=== PATIENT | female | born 1945 | race Caucasian/White ===

== ENCOUNTER → 2022-04-28 08:31 | Outpatient (BNVA) | payer MEDICARE, SELFPAY | PROVIDERS: PCP Internal Medicine Geriatric Medicine; Visit Provider Internal Medicine | DX: M54.17 Radiculopathy, lumbosacral region (principal); Z96.82 Presence of neurostimulator | CPT/HCPCS: 99212 ==

== ENCOUNTER 2022-07-01 13:44 | Outpatient (REF) | payer MEDICARE, SELFPAY ==
--- NOTE | ~2022-07-01 | MR_ITS ---
MR LUMBAR SPINE WITHOUT AND WITH CONTRAST CLINICAL INFORMATION: Arthrodesis status. COMPARISON: None available. TECHNIQUE: MRI of the lumbar spine was obtained using routine sequences with and without contrast. Intravenous contrast: Gadavist7 mL FINDINGS: There are 5 nonrib-bearing lumbar-type vertebral bodies. There is grade 1 degenerative anterolisthesis of L3 on L4. Lumbar alignment is otherwise maintained. There is no bone marrow edema. There are no acute fractures. Chronic upper endplate compression deformity at T11. Lumbar vertebral body heights are maintained. There is disc desiccation at all lumbar levels. Mild disc volume loss at L3-L4. Remaining disc volumes are preserved. There are no suspicious enhancing intraosseous lesions. There is no pathologic enhancement along the cauda equina nerve roots. Conus terminates at the L1-L2 level. Partially imaged artifact from a spinal stimulator device. 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 The right kidney is not visualized. Paraspinal muscular atrophy within the lower lumbar spine. L1-L2: Diffuse annular disc bulge with a superimposed shallow left paracentral disc protrusion that results in posterior deflection of the traversing left L2 nerve root within the left subarticular zone. No central canal stenosis. Disc osteophyte and facet arthropathy result in mild bilateral foraminal encroachment. L2-L3: Diffuse annular disc bulge and bilateral facet arthropathy and ligamentum flavum thickening. Central canal remains patent. There is mild bilateral foraminal encroachment. L3-L4: Slight grade 1 anterolisthesis. Severe bilateral facet arthropathy and ligamentum flavum thickening. Uncovered disc with a superimposed diffuse annular disc bulge. Findings in concert result in right subarticular zone stenosis with mass effect on the traversing right L4 nerve root within the right subarticular zone. Mild bilateral foraminal encroachment. L4-L5: Diffuse annular disc bulge and severe bilateral facet arthropathy and ligamentum flavum thickening. No central canal stenosis. Mild bilateral foraminal encroachment without exiting nerve root compression. L5-S1: Diffuse annular disc bulges in part disc osteophyte and moderate bilateral facet arthropathy. No central canal stenosis. Mild foraminal encroachment bilaterally. MR/MR lumbar spine wo/w con IMPRESSION: * At L1-L2, a shallow left paracentral disc protrusion results in posterior deflection of the traversing left L2 nerve root within the left subarticular zone. * At L3-L4, there is grade 1 degenerative anterolisthesis in the setting of advanced bilateral facet arthropathy that along with additional multifactorial degenerative changes result in right subarticular zone stenosis with mass effect on the traversing right L4 nerve root. * Additional degenerative findings as discussed above. Advanced bilateral facet arthropathy at the L2-L3, L3-L4, and L4-L5 levels.Chronic upper endplate compression deformity at T11. No acute fractures. * Partially imaged artifact from a spinal stimulator device. 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 * Paraspinal muscular atrophy within the lower lumbar spine.
== END 2022-07-01 13:45 | disposition home or self-care (01) ==
LOC: HO.MRI 13:44
PROVIDERS: PCP Internal Medicine; Visit Provider Nurse Practitioner Family
DX: M54.17 Radiculopathy, lumbosacral region (principal); Z98.1 Arthrodesis status; Z96.82 Presence of neurostimulator
CPT/HCPCS: 72158; A9585

== ENCOUNTER → 2022-07-07 11:19 | Outpatient (BNVA) | payer MEDICARE, SELFPAY | PROVIDERS: PCP Internal Medicine; Visit Provider Nurse Practitioner Family | DX: M54.17 Radiculopathy, lumbosacral region (principal); M51.36 Other intervertebral disc degeneration, lumbar region; M62.5A2 Muscle wasting and atrophy, not elsewhere classified, back, lumbosacral; Z96.82 Presence of neurostimulator | CPT/HCPCS: 99212 ==